=== PATIENT | male | born 1955 | race Caucasian/White ===

== ENCOUNTER 2016-07-07 14:10 | Observation (INO) | payer OTHER ==
[2016-07-07] VITALS (7 sets, daily range): BP systolic 114–142; BP diastolic 63–76; PULSE 67–80; RESP 18–20; TEMP 97.7–97.8; O2SAT 96–97
[~2016-07-07] VITALS: Ht 177.8 cm; Wt 80.0 kg
--- NOTE | 2016-07-07 14:18 | PD ---
HPI Chief Complaint: near syncope Time Seen by Provider: 14:18 Travel History International Travel<30 days: No Contact w/Intl Traveler<30days: No Traveled to known affect area: No History of Present Illness HPI 60-year-old male came to the emergency room with history of syncopal episode just prior to coming in brought by EMS today. Patient says that he was feeling fine today he went to eat lunch with his family and got up to pay the bill he felt that he was going to pass out. He somehow made it back to his chair and got very diaphoretic. Family called 911. No history of chest pain. He knew he was going to pass out but says that it came very suddenly. He did not fall or hit his head. This has never happened before. He has history of high blood pressure and took his blood pressure medication this morning but has been taking it for a while. Patient says that when paramedics stood him up he almost passed out again. Currently he is feeling okay. His clothes were DRENCHED in sweat. [facility] Past Medical History Narrative Medical List of his past medical, surgical, social and family history is reviewed from the nursing note. Social History Tobacco Use: No Allergies-Medications (Allergen,Severity, Reaction): Coded Allergies: No Known Allergies (Unverified , 07/07/16) Comments No known drug allergies. Narrative Medication Awaiting for the nurse to do the med reconciliation. Review of Systems Except as stated in HPI: all other systems reviewed are Neg Physical Exam Narrative GENERAL: Awake, alert, mild distress SKIN: Focused skin assessment diaphoretic. HEAD: Atraumatic. Normocephalic. EYES: Pupils equal and round. No scleral icterus. No injection or drainage. ENT: No nasal bleeding or discharge. Mucous membranes pink and moist. NECK: Trachea midline. No JVD. CARDIOVASCULAR: Regular rate and rhythm. No murmur appreciated. RESPIRATORY: No accessory muscle use. Clear to auscultation. Breath sounds equal bilaterally. GASTROINTESTINAL: Abdomen soft, non-tender, nondistended. Hepatic and splenic margins not palpable. MUSCULOSKELETAL: No obvious deformities. No clubbing. No cyanosis. No edema. NEUROLOGICAL: Awake and alert. No obvious cranial nerve deficits. Motor grossly within normal limits. Normal speech. PSYCHIATRIC: Appropriate mood and affect; insight and judgment normal. Data Data Last Documented VS Vital Signs Date Time Temp Pulse Resp B/P Pulse Ox O2 Delivery O2 Flow Rate FiO2 07/07/16 14:23 70 114/63 122/75 120/70 07/07/16 14:15 97.8 18 97 Orders Prothrombin Time / Inr (Pt) (07/07/16 14:23) Complete Blood Count With Diff (07/07/16 14:23) Basic Metabolic Panel (Bmp) (07/07/16 14:23) Creatine Kinase (Cpk) (07/07/16 14:23) Troponin I (07/07/16 14:23) Urinalysis - C+S If Indicated (07/07/16 14:23) Ct Brain W/O Iv Contrast(Rout) (07/07/16 14:23) Chest, Single Ap (07/07/16 14:23) Ecg Monitoring (07/07/16 14:23) Iv Access Insert/Monitor (07/07/16 14:23) Oximetry (07/07/16 14:23) Sodium Chloride 0.9% Flush (Ns Flush) (07/07/16 14:30) Orthostatic Vital Signs (07/07/16 14:23) Electrocardiogram (07/07/16 ) D-Dimer (07/07/16 15:37) Admit Order (Ed Use Only) (07/07/16 15:41) Labs Laboratory Tests Test 07/07/16 07/07/16 14:30 14:50 White Blood Count 7.2 TH/MM3 Red Blood Count 4.86 MIL/MM3 Hemoglobin 14.8 GM/DL Hematocrit 42.3 % Mean Corpuscular Volume 87.0 FL Mean Corpuscular Hemoglobin 30.4 PG Mean Corpuscular Hemoglobin 34.9 % Concent Red Cell Distribution Width 14.4 % Platelet Count 220 TH/MM3 Mean Platelet Volume 8.1 FL Neutrophils (%) (Auto) 62.0 % Lymphocytes (%) (Auto) 29.6 % Monocytes (%) (Auto) 5.4 % Eosinophils (%) (Auto) 1.9 % Basophils (%) (Auto) 1.1 % Neutrophils # (Auto) 4.5 TH/MM3 Lymphocytes # (Auto) 2.1 TH/MM3 Monocytes # (Auto) 0.4 TH/MM3 Eosinophils # (Auto) 0.1 TH/MM3 Basophils # (Auto) 0.1 TH/MM3 CBC Comment DIFF FINAL Differential Comment Prothrombin Time 11.0 SEC Prothromb Time International 1.0 RATIO Ratio D-Dimer Quantitative (PE/DVT) 0.20 MG/L FEU Sodium Level 142 MEQ/L Potassium Level 3.6 MEQ/L Chloride Level 107 MEQ/L Carbon Dioxide Level 28.9 MEQ/L Anion Gap 6 MEQ/L Blood Urea Nitrogen 13 MG/DL Creatinine 0.85 MG/DL Estimat Glomerular Filtration 92 ML/MIN Rate Random Glucose 103 MG/DL Calcium Level 8.8 MG/DL Total Creatine Kinase 107 U/L Troponin I LESS THAN 0.02 NG/ML Urine Color DARK-YELLOW Urine Turbidity CLEAR Urine pH 5.5 Urine Specific [place] 1.028 Urine Protein TRACE mg/dL Urine Glucose (UA) NEG mg/dL Urine Ketones NEG mg/dL Urine Occult Blood NEG Urine Nitrite NEG Urine Bilirubin NEG Urine Urobilinogen LESS THAN 2.0 MG/DL Urine Leukocyte Esterase NEG Urine RBC 1 /hpf Urine WBC 1 /hpf Urine Squamous Epithelial <1 /hpf Cells Urine Hyaline Casts 3 /lpf Urine Mucus FEW /lpf Microscopic Urinalysis Comment CATH-CULT NOT IND MDM Medical Decision Making Medical Screen Exam Complete: Yes Emergency Medical Condition: Yes Medical Record Reviewed: Yes Interpretation(s) Twelve-lead EKG was reviewed by me. Normal sinus rhythm, normal axis, nonspecific ST-T wave changes. Heart rate of 67 bpm Differential Diagnosis ACS, non-STEMI, TIA Narrative Course 3:45 PM blood test results of back and within normal limit. CT scan of his head and chest x-ray was within normal limit as well. Upon asking his said that they have been involved in multiple trips back and forth from [place] to here since they're moving. Each trip is [address] Given this history there is a low probability for PE. Ordered a d-dimer at this point and awaiting for the test result. Meanwhile I spoke with the resident was accepted the case. Procedures EKG Prior to Arrival: No Diagnosis Primary Impression: Near syncope Admitting Information Admitting Physician Requests: Observation Neil Pearson MD July 07, 2016 14:18
[2016-07-07] MEDS ORDERED: SODIUM CHLORIDE 0.9% FLUSH 10 ML FLUSH IVF PRN (14:30)
--- NOTE | 2016-07-07 14:43 | RADRPT ---
EXAM DATE/TIME: 07/07/2016 14:37 [facility] COMPARISON: No previous studies available for comparison. INDICATIONS : Possible stroke, shortness of breath. MEDICAL HISTORY : None. SURGICAL HISTORY : None. ENCOUNTER: Initial ACUITY: 1 day PAIN SCORE: 0/10 LOCATION: Bilateral chest FINDINGS: A single view of the chest demonstrates diminished lung volumes and bibasilar densities. Heart normal in size. The cardiomediastinal contours are unremarkable. Osseous structures are intact. CONCLUSION: Diminished lung volumes and bibasilar atelectasis. Ameya Flores MD on July 07, 2016 at 14:41 Board Certified Radiologist. This report was verified electronically.
[2016-07-07 14:56] LABS: AUTOMATED NEUTROPHIL # 4.5 TH/MM3 (1.8-7.7); BASOPHIL # 0.1 TH/MM3 (0-0.2); BASOPHIL % 1.1 % (0.0-2.0); EOSINOPHIL # 0.1 TH/MM3 (0-0.4); EOSINOPHIL % 1.9 % (0.0-4.0); HEMATOCRIT 42.3 % (39.0-51.0); HEMO FLAGS DIFF FINAL; LYMPH % 29.6 % (9.0-44.0); LYMPHOCYTE # 2.1 TH/MM3 (1.0-4.8); MEAN CORPUSCULAR HEMOGLOBIN 30.4 PG (27.0-34.0); MEAN CORPUSCULAR HGB CONC 34.9 % (32.0-36.0); MONO % 5.4 % (0.0-8.0); PLATELET COUNT 220 TH/MM3 (150-450); RED BLOOD COUNT 4.86 MIL/MM3 (4.50-5.90); RED CELL DISTRIBUTION WIDTH 14.4 % (11.6-17.2); WHITE BLOOD COUNT 7.2 TH/MM3 (4.0-11.0)
[2016-07-07 15:18] LABS: ANION GAP 6 MEQ/L (5-15); BICARBONATE 28.9 MEQ/L (21.0-32.0); BLOOD UREA NITROGEN 13 MG/DL (7-18); CHLORIDE 107 MEQ/L (98-107); GLOMERULAR FILTRATION RATE 92 ML/MIN (>89); POTASSIUM 3.6 MEQ/L (3.5-5.1); SODIUM (NA) 142 MEQ/L (136-145)
[2016-07-07 15:19] LABS: BLOOD, URINE NEG (NEG); GLUCOSE,URINE NEG (NEG); HYALINE CAST, URINE 3 /lpf (RARE); KETONE, URINE NEG (NEG); MUCUS URINE FEW /lpf (OCC); NITRITE,URINE NEG (NEG); PH, URINE 5.5 (5.0-8.5); SQUAMOUS EPITHELIAL CELL URINE <1 /hpf (0-5); URINE COLOR DARK-YELLOW (YELLW/STRAW)
[2016-07-07 15:21] LABS: CREATINE KINASE 107 U/L (39-308)
--- NOTE | 2016-07-07 15:21 | RADRPT ---
EXAM DATE/TIME: 07/07/2016 15:12 [facility] COMPARISON: No previous studies available for comparison. INDICATIONS : Syncope today. RADIATION DOSE: 36.19 CTDIvol (mGy) MEDICAL HISTORY : Hypertension. SURGICAL HISTORY : None. ENCOUNTER: Initial ACUITY: 1 day PAIN SCALE: 0/10 LOCATION: Bilateral head TECHNIQUE: Multiple contiguous axial images were obtained of the head. Using automated exposure control and adj ustment of the mA and/or kV according to patient size, radiation dose was kept as low as reasonably a chievable to obtain optimal diagnostic quality images. FINDINGS: CEREBRUM: The ventricles are normal for age. No evidence of midline shift, mass lesion, hemorrhage or acute in farction. No extra-axial fluid collections are seen. POSTERIOR FOSSA: The cerebellum and brainstem are intact. The 4th ventricle is midline. The cerebellopontine angle i s unremarkable. EXTRACRANIAL: The visualized portion of the orbits is intact. SKULL: The calvaria is intact. No evidence of skull fracture. CONCLUSION: Negative for an acute process. Chele Baird MD FACR on July 07, 2016 at 15:18 Board Certified Radiologist. This report was verified electronically.
[2016-07-07 15:29] LABS: COMMENT (UR) CATH-CULT NOT IND; CULTURE IF INDICATED CATH CULTURE NOT IND
--- NOTE | 2016-07-07 15:56 | HHI.HP ---
HPI Service Family Medicine Primary Care Physician No Primary Care Physician Admission Diagnosis near syncope Diagnoses: International Travel<30 Days: No Contact w/Intl Traveler<30days: No Known Affected Area: No History of Present Illness This is a 60-year-old male with past medical history significant for hypertension and BPH. He was brought in by ambulance today (07/07/16) to the hospital due to a near syncopal episode. He is with family for Mother's Day eating out at [employer]. They were eating on the balcony, as well as had a couple beers, he says that when he finished got up to go pay the bill he quickly became dizzy. He is able to go pay the bill, however only back to his stable the dizziness worsened, he became diaphoretic and weak, and felt like he was going to pass out. He denies ever losing consciousness. EMS was called, and the cigar packer and picker took his blood pressure he says that it was systolic in the 70s, but uncertain as to what his diastolic was. He quickly felt nauseated and then vomited, and says that after he vomited he actually felt better. At this time he thinks he is feeling back to normal. Denies ever experiencing something like this before. Review of Systems Constitutional: COMPLAINS OF: Diaphoretic episodes, DENIES: Fatigue, Fever, Weight gain, Weight loss, Chills, Change in appetite Eyes: DENIES: Blurred vision, Vision loss Ears, nose, mouth, throat: DENIES: Hearing loss, Throat pain, Hoarseness, Ear Pain, Running Nose, Sinus Pain Respiratory: DENIES: Cough, Wheezing, Sputum production, Shortness of breath Cardiovascular: DENIES: Chest pain, Palpitations, Lower Extremity Edema, Claudication Gastrointestinal: COMPLAINS OF: Nausea, Vomiting, DENIES: Abdominal pain, Bloody stools, Diarrhea Genitourinary: DENIES: Urinary frequency, Dysuria Musculoskeletal: DENIES: Joint pain, Muscle aches, Back pain Integumentary: DENIES: Abnormal pigmentation Hematologic/lymphatic: DENIES: Bruising Neurologic: DENIES: Abnormal gait, Headache, Seizures, Speech Problems, Tremor , Poor Balance Psychiatric: DENIES: Anxiety, Depression Past Family Social History Past Medical History HTN BPH Past Surgical History Hydrocele repair Reported Medications Norvasc .25mg once a day Flomax Allergies: Coded Allergies: No Known Allergies (Unverified , 07/07/16) Family History CVA Melanoma [place] Social History [place] Have a pet dog Quick smoking in 2000 smoked a pack a day for 10 years 1 Beer a day usually Denies illicit drug use Physical Exam Vital Signs Vital Signs Date Time Temp Pulse Resp B/P Pulse Ox O2 Delivery O2 Flow Rate FiO2 07/07/16 14:23 70 114/63 122/75 120/70 07/07/16 14:15 97.8 78 18 125/68 97 Physical Exam GENERAL: This is a well-nourished, well-developed patient, in no apparent distress. SKIN: No rashes, ecchymoses or lesions. Cool and dry. Multiple tattoos HEAD: Atraumatic. Normocephalic. No temporal or scalp tenderness. EYES: Pupils equal round and reactive. Extraocular motions intact. No scleral icterus. No injection or drainage. ENT: Nose without bleeding, purulent drainage or septal hematoma. Throat without erythema, tonsillar hypertrophy or exudate. Uvula midline. Airway patent. NECK: Trachea midline. No JVD or lymphadenopathy. Supple, nontender, no meningeal signs. CARDIOVASCULAR: Regular rate and rhythm without murmurs, gallops, or rubs. RESPIRATORY: Clear to auscultation. Breath sounds equal bilaterally. No wheezes , rales, or rhonchi. GASTROINTESTINAL: Abdomen soft, non-tender, nondistended. No hepato-splenomegaly , or palpable masses. No guarding. MUSCULOSKELETAL: Extremities without clubbing, cyanosis, or edema. No joint tenderness, effusion, or edema noted. No calf tenderness. Negative Homans sign bilaterally. NEUROLOGICAL: Awake and alert. Cranial nerves II through XII grossly intact. Motor and sensory grossly within normal limits. Five out of 5 muscle strength in all muscle groups. Normal speech. Laboratory Laboratory Tests Test 07/07/16 07/07/16 14:30 14:50 White Blood Count 7.2 Red Blood Count 4.86 Hemoglobin 14.8 Hematocrit 42.3 Mean Corpuscular Volume 87.0 Mean Corpuscular Hemoglobin 30.4 Mean Corpuscular Hemoglobin 34.9 Concent Red Cell Distribution Width 14.4 Platelet Count 220 Mean Platelet Volume 8.1 Neutrophils (%) (Auto) 62.0 Lymphocytes (%) (Auto) 29.6 Monocytes (%) (Auto) 5.4 Eosinophils (%) (Auto) 1.9 Basophils (%) (Auto) 1.1 Neutrophils # (Auto) 4.5 Lymphocytes # (Auto) 2.1 Monocytes # (Auto) 0.4 Eosinophils # (Auto) 0.1 Basophils # (Auto) 0.1 CBC Comment DIFF FINAL Differential Comment Prothrombin Time 11.0 Prothromb Time International 1.0 Ratio Sodium Level 142 Potassium Level 3.6 Chloride Level 107 Carbon Dioxide Level 28.9 Anion Gap 6 Blood Urea Nitrogen 13 Creatinine 0.85 Estimat Glomerular Filtration 92 Rate Random Glucose 103 Calcium Level 8.8 Total Creatine Kinase 107 Troponin I LESS THAN 0.02 Urine Color DARK-YELLOW Urine Turbidity CLEAR Urine pH 5.5 Urine Specific [place] 1.028 Urine Protein TRACE Urine Glucose (UA) NEG Urine Ketones NEG Urine Occult Blood NEG Urine Nitrite NEG Urine Bilirubin NEG Urine Urobilinogen LESS THAN 2.0 Urine Leukocyte Esterase NEG Urine RBC 1 Urine WBC 1 Urine Squamous Epithelial <1 Cells Urine Hyaline Casts 3 Urine Mucus FEW Microscopic Urinalysis Comment CATH-CULT NOT IND Result Diagram: 07/07/16 1430 07/07/16 143 Imaging Last Impressions Head CT 07/07/161422 Signed Impressions: Service Date/Time: Thursday, July 07, 2016 15:12 - CONCLUSION: Negative for an acute process. Chele Baird MD FACR Chest X-Ray 07/07/161422 Signed Impressions: Service Date/Time: Thursday, July 07, 2016 14:37 - CONCLUSION: Diminished lung volumes and bibasilar atelectasis. Ameya Flores MD Course Orthostatic blood pressures within normal limits D-dimer negative for PE Assessment and Plan Assessment and Plan This is a 60-year-old male with past medical history significant for hypertension and BPH. Being admitted for observation for near syncopal episode Code Status Full code Discussed Condition With WDW: Dr. Salgado Problem List: (1) Near syncope Status: Acute Plan: Patient had a near syncopal episode with reported low blood pressure. D- dimer negative for PE. CT of the head within normal limits. At time of evaluation patient was back to baseline. Orthostatic blood pressures were performed and within the normal limits. Troponin less than 0.02 * Admit to observation * Carotid ultrasound pending * IV NS at 75 MLS per hour * Trending troponins * Trending EKG * TSH pending * CBC, BMP ordered for the a.m. * Place on telemetry (2) HTN (hypertension), benign Status: Chronic Plan: Patient reports a history of hypertension. Currently on Norvasc, holding blood pressure medication at this time, due to hypotensive episode with near syncope. Blood pressures currently within normal limits. * Clonidine when necessary per hypertensive protocol (3) Nutrition, metabolism, and development symptoms Status: Acute Plan: Diet: Regular diet Monitor electrolytes replace accordingly Vitals every 4 Out of bed ad arabella. DVT prophylaxis with heparin and SCDs CODE STATUS: Full code Disposition: Anticipate discharge tomorrow Arley Ovalle MD R2 July 07, 2016 15:56
[2016-07-07] MEDS: HEPARIN SODIUM - SQ 10,000 UNITS/ML VIAL SQ SCH ×2 (16:00→23:31)
[2016-07-07] MEDS: SODIUM CHLOR 0.45% 1000 ML INJ 1,000 ML IV SCH (16:00)
[2016-07-07] MEDS ORDERED: ZOLPIDEM TARTRATE 5 MG TAB PO PRN (16:15)
[2016-07-07] MEDS ORDERED: NALOXONE HCL 0.4 MG/ML AMP IV PRN (16:15)
[2016-07-07] MEDS ORDERED: SODIUM CHLORIDE 0.9% FLUSH 10 ML FLUSH IV FLUSH PRN (16:15)
[2016-07-07] MEDS ORDERED: ONDANSETRON HCL 4 MG/2 ML VIAL IVP PRN (16:15)
[2016-07-07] MEDS ORDERED: cloNIDine HCL 0.1 MG TAB PO PRN (16:30)
--- NOTE | 2016-07-07 17:38 | RADRPT ---
EXAM DATE/TIME: 07/07/2016 16:56 [facility] COMPARISON: No previous studies available for comparison. INDICATIONS : Syncope. MEDICAL HISTORY : Hypertension. Syncope. SURGICAL HISTORY : None. ENCOUNTER: Initial ACUITY: 1 day PAIN SCORE: 0/10 LOCATION: Bilateral neck PEAK SYSTOLIC VELOCITIES (cm/sec): ICA/CCA RATIO: Right: 1.1 Left: 1.6 ICA: Right: 116 Left: 136 CCA: Right: 107 Left: 87 ECA: Right: 127 Left: 119 VERTEBRAL: Right: 44 antegrade Left: 51 antegrade Elevated flow velocities and ICA/CCA ratios have been found to correlate with increased degrees of vessel stenosis, calculated as percentage of diameter relative to a normal segment of distal ICA/CCA FINDINGS: RIGHT CAROTID: There is no evidence for a hemodynamically significant carotid stenosis. Minimal int imal hyperplasia is present with scattered calcific plaque. LEFT CAROTID: There is no evidence for a hemodynamically significant carotid stenosis. Minimal inti mal hyperplasia is present with scattered calcific plaque. VERTEBRAL ARTERIES: Flow is antegrade in both vertebral arteries. MISCELLANEOUS: There are no ancillary masses or adenopathy. CONCLUSION: Negative examination for a hemodynamically significant carotid stenosis. Chele Baird MD FACR Board Certified Radiologist. This report was verified electronically.
[2016-07-07] MEDS: SODIUM CHLORIDE 0.9% FLUSH 10 ML FLUSH IV FLUSH SCH (21:00)
[2016-07-07 21:06] LABS: MEAN CORPUSCULAR HGB CONC 36.7 % (32.0-36.0)
[2016-07-08 00:08] VITALS: BP 134/66; PULSE 67; RESP 20; TEMP 97.7; O2SAT 96
[2016-07-08 03:09] LABS: AUTOMATED NEUTROPHIL # 4.8 TH/MM3 (1.8-7.7); BASOPHIL # 0.1 TH/MM3 (0-0.2); BASOPHIL % 0.7 % (0.0-2.0); EOSINOPHIL # 0.2 TH/MM3 (0-0.4); EOSINOPHIL % 2.4 % (0.0-4.0); HEMATOCRIT 38.5 % (39.0-51.0); LYMPH % 37.8 % (9.0-44.0); LYMPHOCYTE # 3.3 TH/MM3 (1.0-4.8); MEAN CELL VOLUME 86.9 FL (80.0-100.0); MEAN CORPUSCULAR HEMOGLOBIN 31.9 PG (27.0-34.0); MONO % 5.5 % (0.0-8.0); NEUT % 53.6 % (16.0-70.0); PLATELET COUNT 207 TH/MM3 (150-450); RED BLOOD COUNT 4.43 MIL/MM3 (4.50-5.90); RED CELL DISTRIBUTION WIDTH 14.6 % (11.6-17.2); WHITE BLOOD COUNT 8.9 TH/MM3 (4.0-11.0)
[2016-07-08 03:11] LABS: HEMO FLAGS AUTO DIFF
[2016-07-08 03:32] LABS: BICARBONATE 27.9 MEQ/L (21.0-32.0); POTASSIUM 3.9 MEQ/L (3.5-5.1)
[2016-07-08 04:09] VITALS: BP 131/74; PULSE 65; RESP 20; TEMP 97.8; O2SAT 98
[2016-07-08 04:30] LABS: SCAN/DIFF AUTO DIFF CONFIRMED
[2016-07-08] MEDS: SODIUM CHLOR 0.45% 1000 ML INJ 1,000 ML IV SCH (04:50)
[2016-07-08 07:38] VITALS: O2SAT 96
[2016-07-08 07:59] VITALS: PULSE 57
[2016-07-08] MEDS: HEPARIN SODIUM - SQ 10,000 UNITS/ML VIAL SQ SCH (08:00)
[2016-07-08 08:10] VITALS: BP 117/72; PULSE 65; RESP 20; TEMP 98; O2SAT 95
--- NOTE | 2016-07-08 08:16 | HHI.FPPN ---
Subjective Remarks Patient seen and examined this morning. Reports he feels well, like his normal self. at bedside. Denies CP/SOB, N/V, Blurry vision, dizziness. States he did not sleep at all last night. He has back pain on and off normally, and yesterday took a tramadol and ibuprofen for this which he often does at home. He and both deny him taking any new herbal or OTC supplements. Has been ambulating well. Tolerating PO. Feels ready to go home today. (Jackie Clark MD) Objective Vitals Vital Signs Date Time Temp Pulse Resp B/P Pulse Ox O2 Delivery O2 Flow Rate FiO2 07/08/16 08:10 98.0 65 20 117/72 95 07/08/16 07:59 57 07/08/16 07:38 96 21 07/08/16 04:09 97.8 65 20 131/74 98 07/08/16 00:08 97.7 67 20 134/66 96 07/07/16 22:18 67 07/07/16 19:37 96 07/07/16 19:25 97.7 80 20 142/71 97 07/07/16 18:31 70 07/07/16 16:38 84 18 128/76 99 07/07/16 14:23 70 114/63 122/75 120/70 07/07/16 14:15 97.8 78 18 125/68 97 (Jackie Clark MD) Result Diagram: 07/08/16 0243 07/08/16 0243 Imaging Last Impressions Head CT 07/07/16 1423 Signed Impressions: Service Date/Time: Thursday, July 07, 2016 15:12 - CONCLUSION: Negative for an acute process. Chele Baird MD FACR Chest X-Ray 07/07/16 1423 Signed Impressions: Service Date/Time: Thursday, July 07, 2016 14:37 - CONCLUSION: Diminished lung volumes and bibasilar atelectasis. Ameya Flores MD Carotid Artery Ultrasound 07/07/16 0000 Signed Impressions: Service Date/Time: Thursday, July 07, 2016 16:56 - CONCLUSION: Negative examination for a hemodynamically significant carotid stenosis. Chele Baird MD Objective Remarks GENERAL: This is a well-nourished, well-developed patient, in no apparent distress. Sitting up in bed. SKIN: No rashes, ecchymoses or lesions. Cool and dry. Multiple tattoos ENT: Mucous membranes moist. CARDIOVASCULAR: Regular rate and rhythm without murmurs, gallops, or rubs. RESPIRATORY: Clear to auscultation. Breath sounds equal bilaterally. No wheezes , rales, or rhonchi. GASTROINTESTINAL: Abdomen soft, non-tender, nondistended. MUSCULOSKELETAL: Extremities without clubbing, cyanosis, or edema. NEUROLOGICAL: Awake and alert. Cranial nerves grossly intact. Motor and sensory grossly within normal limits. Normal speech. (Jackie Clark MD) Urinary Catheter: No (Jackie Clark MD) Vascular Central Line Catheter: No (Jackie Clark MD) A/P Assessment and Plan This is a 60-year-old male with past medical history significant for hypertension and BPH. Admitted for observation for near syncopal episode, back to baseline now Discharge Planning Discharge home today (Jackie Clark MD) Attending Attestation Patient seen and examined. Case reviewed and discussed with the resident team. Agree with plan of care as discussed with me and documented in the resident note. (Albaro Salgado MD) Problem List: (1) Near syncope Status: Resolved Plan: Patient had a near syncopal episode with reported low blood pressure. Workup negative thus far. D-dimer negative for PE. CT of the head within normal limits. At time of initial evaluation yesterday patient was back to baseline. Orthostatic blood pressures were performed and within the normal limits. Carotid ultrasound negative. TSH negative. Troponin x3 less than 0.02, EKGs normal. CBC, BMP this am normal. Telemetry reviewed and no events. Plan: * D/c IV NS at 75 MLS per hour * US aorta ordered this am to r/o abdominal aneurysm, and results are negative, no abdominal aortic aneurysm identified * Stable for d/c home today (2) Back pain Status: Chronic Plan: Reports on and off back pain chronically. * US aorta was ordered as above, and is negative (3) HTN (hypertension), benign Status: Chronic Plan: Patient reports a history of hypertension. Currently on Norvasc, held blood pressure medication during hospital stay due to hypotensive episode with near syncope. Blood pressures currently within normal limits. Will continue home medication on discharge * Clonidine when necessary per hypertensive protocol while inpatient (4) Nutrition, metabolism, and development symptoms Status: Acute Plan: Diet: Regular diet Electrolytes normal DVT prophylaxis with heparin and SCDs (Jackie Clark MD) Problem Qualifiers (1) Back pain: Qualified Code: M54.5 - Chronic low back pain, unspecified back pain laterality , with sciatica presence unspecified Jackie Clark MD July 08, 2016 08:16 Albaro Salgado MD July 09, 2016 08:59
[2016-07-08] MEDS: SODIUM CHLORIDE 0.9% FLUSH 10 ML FLUSH IV FLUSH SCH (09:00)
--- NOTE | 2016-07-08 10:16 | HHI.DCPOC ---
Discharge Care Plan Diagnosis: (1) HTN (hypertension), benign (2) Near syncope (3) Back pain Goals to Promote Your Health * To prevent worsening of your condition and complications * To maintain your health at the optimal level Directions to Meet Your Goals Take your medications as prescribed Follow your dietary instruction Follow activity as directed Keep your appointments as scheduled Take your immunizations and boosters as scheduled If your symptoms worsen call your PCP, if no PCP go to Urgent Care Center or Emergency Room Smoking is Dangerous to Your Health. Avoid second hand smoke Call the 24-hour hour crisis hotline for domestic abuse at Jackie Clark MD July 08, 2016 10:16
--- NOTE | 2016-07-08 10:46 | RADRPT ---
EXAM DATE/TIME: 07/08/2016 10:02 [facility] COMPARISON: US CAROTID ARTERIES, July 07, 2016, 16:56. INDICATIONS : Aneurysm. MEDICAL HISTORY : Hypertension. Syncope. SURGICAL HISTORY : None. ENCOUNTER: Initial ACUITY: 1 day PAIN SCORE: 0/10 LOCATION: Mid abdomen. MEASUREMENTS: (AP x TRANSVERSE) PROXIMAL: 2.4 x 2.4 cm MID: 1.9 x 2.1 cm DISTAL: 1.8 x 1.7 cm RIGHT ILIAC: 1.5 x 2.1 cm LEFT ILIAC: 1.6 x 1.8 cm FINDINGS: AORTA: No significant atherosclerotic disease. Doppler evaluation within normal limits. IVC: Within normal limits. CONCLUSION: 1. No abdominal aortic aneurysm identified. Julio C Baird MD on July 08, 2016 at 10:43 Board Certified Radiologist. This report was verified electronically.
[2016-07-08 11:39] VITALS: BP 146/75; PULSE 68; RESP 18; TEMP 97.8; O2SAT 95
--- NOTE | 2016-07-08 14:43 | EKG ---
Date Performed: 07/07/2016 Time Performed: 14:32:55 PTAGE: 60 years EKG: Sinus rhythm NORMAL ECG NO PREVIOUS TRACING DOCTOR: Arley Bey Interpretating Date/Time 07/08/2016 14:40:19
--- NOTE | 2016-07-08 14:43 | EKG ---
Date Performed: 07/07/2016 Time Performed: 20:38:07 PTAGE: 60 years EKG: Sinus rhythm NORMAL ECG PREVIOUS TRACING : 07/07/2016 14.32 Since previous tracing, no significant change noted DOCTOR: Arley Bey Interpretating Date/Time 07/08/2016 14:40:31
--- NOTE | 2016-07-08 14:44 | EKG ---
Date Performed: 07/08/2016 Time Performed: 02:22:25 PTAGE: 60 years EKG: Sinus rhythm NORMAL ECG PREVIOUS TRACING : 07/07/2016 20.38 Since previous tracing, no significant change noted DOCTOR: Arley Bey Interpretating Date/Time 07/08/2016 14:40:40
== END 2016-07-08 12:58 | disposition home or self-care (01) ==
LOC: NEPE 14:10 → NEDA 15:42 → INTOOBSV 15:42 → NEPFCDU 17:21
PROVIDERS: ADMIT Family Medicine; ATTEND Family Medicine
DX: R55 Syncope and collapse (principal); R61 Generalized hyperhidrosis; N40.0 Benign prostatic hyperplasia without lower urinary tract symptoms; I10 Essential (primary) hypertension; R11.2 Nausea with vomiting, unspecified; Z87.891 Personal history of nicotine dependence; J98.11 Atelectasis; M54.5 Low back pain; I95.9 Hypotension, unspecified
CPT/HCPCS: 70450; 71010; 76775; 80048; 81001; 82550; 84443; 84484; 85025; 85379; 85610; 93005; 93880; 99285; G0378; J1644